=== PATIENT | male | born 1980 | race Caucasian/White ===

== ENCOUNTER 2018-02-22 11:01 | Emergency (ER) | payer MEDICAID ==
[2018-02-22] MEDS ORDERED: Sodium Chloride 0.9% 10 ML Syringe FLUSH PRN (11:39)
[2018-02-22 11:49] LABS: ANION GAP 10.1; CHLORIDE,CL 105 mmol/L (101-111); SODIUM,NA 138 mmol/L (135-145)
--- NOTE | 2018-02-22 11:51 | EDM.PDOC ---
ED HPI GENERAL MEDICAL PROBLEM - General Stated Complaint: CHEST PAINS Time Seen by Provider: 02/22/18 11:51 Source of Information: Reports: Patient History Limitations: Reports: No Limitations - History of Present Illness INITIAL COMMENTS - FREE TEXT/NARRATIVE: This 38 yo male patient reports to the ED with chest pain that started last night, but got much worse today. The patient reports that he has a history of blood clots and hypertension, but stopped taking his blood thinner and ran out of blood pressure medications. The patient reports that his symptoms had subsided prior to arrival in the ED. The patient reports he is currently in the [facility] due to violating his probation. The patient does not have a provider in [place]. Onset Date: 02/21/18 Duration: Constant, Resolved Prior to Arrival Location: Reports: Chest Quality: Reports: Ache, Sharp Severity: Severe Improves with: Reports: None Worsens with: Reports: None Associated Symptoms: Reports: Chest Pain Chest Pain Score (Numeric/FACES): 7 - Related Data Allergies Allergy/AdvReac Type Severity Reaction Status Date / Time No Known Allergies Allergy Verified 09/25/14 20:27 Home Meds: Home Meds Amitriptyline HCl 50 mg PO ASDIRECTED 02/22/18 [History] Benazepril HCl [Lotensin] 40 mg PO ASDIRECTED 02/22/18 [History] Hydrochlorothiazide 25 mg PO ASDIRECTED 02/22/18 [History] NIFEdipine [Nifedipine ER] 30 mg PO ASDIRECTED 02/22/18 [History] Past Medical History Cardiovascular History: Reports: Blood Clots/VTE/DVT, Hypertension Other Genitourinary History: with increased pain pt has more trouble voiding - Past Surgical History Other HEENT Surgeries/Procedures: eye surgery Social & Family History - Family History Family Medical History: Unobtainable - Tobacco Use Smoking Status *Q: Current Every Day Smoker Years of Tobacco use: 20 Packs/Tins Daily: 0.5 - Caffeine Use Caffeine Use: Reports: Coffee, Energy Drinks, Soda - Recreational Drug Use Recreational Drug Use: No ED ROS GENERAL - Review of Systems Review Of Systems: ROS reveals no pertinent complaints other than HPI. ED EXAM, GENERAL - Physical Exam Exam: See Below Exam Limited By: No Limitations General Appearance: Alert, WD/WN, Moderate Distress, Obese Eye Exam: Bilateral Eye: EOMI, Normal Inspection, PERRL Ears: Normal External Exam, Normal Canal, Hearing Grossly Normal, Normal TMs Nose: Normal Inspection, Normal Mucosa, No Blood Throat/Mouth: Normal Inspection, Normal Lips, Normal Teeth, Normal Gums, Normal Oropharynx, Normal Voice, No Airway Compromise Head: Atraumatic, Normocephalic Neck: Normal Inspection, Supple, Non-Tender, Full Range of Motion Respiratory/Chest: No Respiratory Distress, Lungs Clear, Normal Breath Sounds, No Accessory Muscle Use, Chest Non-Tender Cardiovascular: Normal Peripheral Pulses, Regular Rate, Rhythm, No Edema, No Gallop, No JVD, No Murmur, No Rub GI/Abdominal: Normal Bowel Sounds, Soft, Non-Tender, No Organomegaly, No Distention, No Abnormal Bruit, No Mass (Male) Exam: Deferred Rectal (Males) Exam: Deferred Back Exam: Normal Inspection, Full Range of Motion, NT Extremities: Normal Inspection, Normal Range of Motion, Non-Tender, Normal Capillary Refill, No Pedal Edema Neurological: Alert, Oriented, CN II-XII Intact, Normal Cognition, Normal Gait, Normal Reflexes, No Motor/Sensory Deficits Psychiatric: Normal Affect, Normal Mood Skin Exam: Warm, Dry, Intact, Normal Color, No Rash Lymphatic: No Adenopathy EKG INTERPRETATION EKG Date: 02/22/18 Time: 11:21 Rhythm: NSR [place]: Normal P-Wave: Present QRS: Normal ST-T: Normal QT: Normal Comparison: NA - No Prior EKG Course - Vital Signs Last Recorded V/S: Last Vital Signs Temp Pulse 103 H 02/22/18 11:25 Resp 16 02/22/18 11:25 BP 151/91 H 02/22/18 12:42 Pulse Ox 99 02/22/18 11:25 - Orders/Labs/Meds Orders: Active Orders 24 hr Category Date Time Status EKG Documentation Completion [RC] URGENT Care 02/22/18 11:10 Active Peripheral IV Care [RC] . DIRECTED Care 02/22/18 11:39 Active Chest 1V Frontal [CR] Urgent Exams 02/22/18 11:10 Taken Sodium Chloride 0.9% [Saline Flush] Med 02/22/18 11:39 Active 10 ml FLUSH ASDIRECTED PRN Peripheral IV Insertion Adult [OM.PC] Routine Oth 02/22/18 11:39 Ordered Medication Orders Sodium Chloride (Saline Flush) 10 ml FLUSH ASDIRECTED PRN PRN Reason: Keep Vein Open Last Admin: 02/22/18 12:44 Dose: 10 ml Labs: Laboratory Tests 02/22/18 02/22/18 02/22/18 Range/Units 11:20 11:20 11:20 WBC 9.2 (5.0-10.0) 10^3/uL RBC 4.24 L (4.6-6.2) 10^6/uL Hgb 13.1 L D (14.0-18.0) g/dL Hct 38.4 L (40.0-54.0) % MCV 90.6 (80-100) fL MCH 30.9 (27.0-34.0) pg MCHC 34.1 (33.0-35.0) g/dL Plt Count 231 D (150-450) 10^3/uL Neut % (Auto) 50.2 (42.2-75.2) % Lymph % (Auto) 32.7 (20.5-50.1) % [place] % (Auto) 13.0 H (2-8) % Eos % (Auto) 3.8 H (1.0-3.0) % Baso % (Auto) 0.3 (0.0-1.0) % PT 9.0 (9.0-12.0) SEC INR 0.9 (0.9-1.2) D-Dimer, Quantitative (0-400) ng/mL Sodium 138 (135-145) mmol/L Potassium 4.1 (3.6-5.0) mmol/L Chloride 105 (101-111) mmol/L Carbon Dioxide 27.0 (21.0-31.0) mmol/L Anion Gap 10.1 BUN 12 (7-18) mg/dL Creatinine 0.8 (0.6-1.3) mg/dL Est Cr Clr Drug Dosing TNP Estimated GFR (MDRD) > 60 BUN/Creatinine Ratio 15.00 Glucose 83 (74-105) mg/dL Calcium 8.7 (8.4-10.2) mg/dl Total Bilirubin 0.5 (0.2-1.0) mg/dL AST 27 (10-42) IU/L ALT 32 (10-60) IU/L Alkaline Phosphatase 80 (42-121) IU/L Troponin I < 0.02 (0.00-0.02) ng/ml Total Protein 7.5 (6.7-8.2) g/dl Albumin 4.0 (3.2-5.5) g/dl Globulin 3.5 Albumin/Globulin Ratio 1.14 / Range/Units 11:20 WBC (5.0-10.0) 10^3/uL RBC (4.6-6.2) 10^6/uL Hgb (14.0-18.0) g/dL Hct (40.0-54.0) % MCV (80-100) fL MCH (27.0-34.0) pg MCHC (33.0-35.0) g/dL Plt Count (150-450) 10^3/uL Neut % (Auto) (42.2-75.2) % Lymph % (Auto) (20.5-50.1) % [place] % (Auto) (2-8) % Eos % (Auto) (1.0-3.0) % Baso % (Auto) (0.0-1.0) % PT (9.0-12.0) SEC INR (0.9-1.2) D-Dimer, Quantitative 464 H (0-400) ng/mL Sodium (135-145) mmol/L Potassium (3.6-5.0) mmol/L Chloride (101-111) mmol/L Carbon Dioxide (21.0-31.0) mmol/L Anion Gap BUN (7-18) mg/dL Creatinine (0.6-1.3) mg/dL Est Cr Clr Drug Dosing Estimated GFR (MDRD) BUN/Creatinine Ratio Glucose (74-105) mg/dL Calcium (8.4-10.2) mg/dl Total Bilirubin (0.2-1.0) mg/dL AST (10-42) IU/L ALT (10-60) IU/L Alkaline Phosphatase (42-121) IU/L Troponin I (0.00-0.02) ng/ml Total Protein (6.7-8.2) g/dl Albumin (3.2-5.5) g/dl Globulin Albumin/Globulin Ratio Meds: Medications Generic Name Dose Route Start Last Admin Trade Name Freq PRN Reason Stop Dose Admin Sodium Chloride 10 ml 02/22/18 11:39 02/22/18 12:44 Saline Flush FLUSH 10 ml ASDIRECTED PRN Administration Keep Vein Open Discontinued Medications Generic Name Dose Route Start Last Admin Trade Name Fabricio PRN Reason Stop Dose Admin Iopamidol 100 ml 02/22/18 12:01 [id number] (76%) IVPUSH 02/22/18 12:02 ONETIME ONE Nifedipine 30 mg 02/22/18 12:04 02/22/18 12:42 Procardia Xl PO 02/22/18 12:05 30 mg ONETIME ONE Administration Departure - Departure Time of Disposition: 13:15 Disposition: Home, Self-Care 01 Condition: Fair Clinical Impression: Nonspecific chest pain Hypertension Qualifiers: Hypertension type: unspecified Qualified Code(s): I10 - Essential (primary) hypertension Instructions: Nonspecific Chest Pain, [id number], Hypertension, [id number] Forms: ED Department Discharge Care Plan Goals: The patient was advised of the examination, lab, EKG, chest x-ray and chest CT results during the visit. The patient was given a dose of Nifedipine while in the ED to reduce his blood pressure. The patient was discharged with a script for Nifedipine ER (30 mg) #14 to take 1 by mouth daily and Benazepril (40 mg) # 14 to take 1 by mouth daily for his hypertension. The patient should establish an appointment with a primary care provider for continued evaluation and further treatment. If the patient has any additional symptoms or concerns, the patient should either visit a primary care facility or return to the emergency department. - My Orders Last 24 Hours: My Active Orders 02/22/18 11:10 EKG Documentation Completion [RC] URGENT Chest 1V Frontal [CR] Urgent 02/22/18 11:39 Peripheral IV Care [RC] . DIRECTED Sodium Chloride 0.9% [Saline Flush] 10 ml FLUSH ASDIRECTED PRN Peripheral IV Insertion Adult [OM.PC] Routine - Assessment/Plan Last 24 Hours: My Active Orders 02/22/18 11:10 EKG Documentation Completion [RC] URGENT Chest 1V Frontal [CR] Urgent 02/22/18 11:39 Peripheral IV Care [RC] . DIRECTED Sodium Chloride 0.9% [Saline Flush] 10 ml FLUSH ASDIRECTED PRN Peripheral IV Insertion Adult [OM.PC] Routine
[2018-02-22] MEDS ORDERED: Iopamidol 755 Mg/ML 100 ML Bottle IVPUSH ONE (12:01)
[2018-02-22] MEDS ORDERED: NIFEdipine 30 MG Tab.ER PO ONE (12:04)
[2018-02-22 12:45] VITALS: BP 151/91
--- NOTE | 2018-02-26 11:56 | EKG ---
02/22/2018 - FRANCISCO JO - TIME: 11:21 a.m. FINDINGS: Sinus tachycardia at 104 with incomplete right bundle-branch block. [facility] /[id number]
== END 2018-02-22 13:30 | disposition home or self-care (01) ==
LOC: DL.ED 11:01
DX: R07.9 Chest pain, unspecified (principal); I10 Essential (primary) hypertension; F17.210 Nicotine dependence, cigarettes, uncomplicated
CPT/HCPCS: 36415; 71045; 71260; 80053; 84484; 85025; 85379; 85610; 93005; 99285; A9270; J7050; Q9967

== ENCOUNTER 2020-06-10 15:15 | Emergency (ER) | payer SELFPAY ==
[2020-06-10] MEDS ORDERED: Sodium Chloride 0.9% 10 ML Syringe FLUSH PRN (15:23)
[2020-06-10 15:58] LABS: ANION GAP 14.3 mEq/L (7-13); CHLORIDE,CL 100 mmol/L (98-107); SODIUM,NA 137 mmol/L (136-145)
[2020-06-10 16:03] VITALS: BP 142/68; PULSE 88
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
[2020-06-10] MEDS ORDERED: traMADol 50 MG Tab PO ONE (16:14)
[2020-06-10] MEDS ORDERED: Ondansetron 4 MG Tab.DIS PO ONE (16:18)
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
== END 2020-06-10 16:50 ==
LOC: DL.ED 15:15
DX: S06.0X0A Concussion without loss of consciousness, initial encounter (principal); S02.2XXA Fracture of nasal bones, initial encounter for closed fracture; I10 Essential (primary) hypertension; Z88.6 Allergy status to analgesic agent; Z88.5 Allergy status to narcotic agent; Z79.899 Other long term (current) drug therapy; Y04.0XXA Assault by unarmed brawl or fight, initial encounter; Y92.149 Unspecified place in prison as the place of occurrence of the external cause
CPT/HCPCS: 36415; 70450; 70486; 71250; 72125; 80053; 83735; 84100; 85025; 99284-25; A9270-GY

== ENCOUNTER 2020-07-05 11:56 | Emergency (ER) | payer SELFPAY ==
[2020-07-05 12:11] VITALS: BP 184/86; PULSE 98
--- NOTE | 2020-07-05 12:30 | EDM.PDOC ---
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 The patient reports he was wearing tennis shoes while at work. The patient reports his current pain is a 10/10 to the right great toe. The patient has had his 2nd toe amputated due to frostbite previously. Onset: Today Duration: Constant Location: Reports: Lower Extremity, Right Quality: Reports: Ache, Sharp, Stabbing Severity: Severe Improves with: Reports: None Worsens with: Reports: None Context: Reports: Activity Associated Symptoms: Reports: No Other Symptoms - Related Data Allergies Allergy/AdvReac Type Severity Reaction Status Date / Time acetaminophen [From Tylenol] AdvReac Mild too many Verified 07/05/20 12:06 causes vomiting tramadol AdvReac Mild too many Verified 07/05/20 12:06 causes vomiting Home Meds: Home Meds lisinopriL [Lisinopril] 10 mg PO DAILY 07/05/20 [History] Past Medical History - Past Health History Medical/Surgical History: Denies Medical/Surgical History Cardiovascular History: Reports: Blood Clots/VTE/DVT, Hypertension Respiratory History: Reports: None Gastrointestinal History: Reports: None Genitourinary History: Reports: Other (See Below) Other Genitourinary History: with increased pain pt has more trouble voiding Musculoskeletal History: Reports: None Neurological History: Reports: None Psychiatric History: Reports: Addiction Endocrine/Metabolic History: Reports: None Hematologic History: Reports: None Immunologic History: Reports: None Oncologic (Cancer) History: Reports: None Dermatologic History: Reports: None - Infectious Disease History Infectious Disease History: Reports: None - Past Surgical History Head Surgeries/Procedures: Reports: None HEENT Surgical History: Reports: Other (See Below) Other HEENT Surgeries/Procedures: eye surgery Musculoskeletal Surgical History: Reports: Other (See Below) Other Musculoskeletal Surgeries/Procedures:: right 2nd toe amp r/t merchant bite Oncologic Surgical History: Reports: Biopsy of Breast Social & Family History - Family History Family Medical History: No Pertinent Family History - Tobacco Use Tobacco Use Status *Q: Current Every Day Tobacco User Years of Tobacco use: 22 Packs/Tins Daily: 0.5 - Caffeine Use Caffeine Use: Reports: Coffee Caffeine Use Comment: had x1 today - Recreational Drug Use Recreational Drug Use: No ED ROS GENERAL - Review of Systems Review Of Systems: Comprehensive ROS is negative, except as noted in HPI. ED EXAM, GENERAL - Physical Exam Exam: See Below Exam Limited By: No Limitations General Appearance: Alert, WD/WN, Moderate Distress Eye Exam: Bilateral Eye: EOMI, Normal Inspection, PERRL Ears: Normal External Exam, Normal Canal, Hearing Grossly Normal, Normal TMs Nose: Normal Inspection, Normal Mucosa, No Blood Throat/Mouth: Normal Inspection, Normal Lips, Normal Teeth, Normal Gums, Normal Oropharynx, Normal Voice, No Airway Compromise Head: Atraumatic, Normocephalic Neck: Normal Inspection, Supple, Non-Tender, Full Range of Motion Respiratory/Chest: No Respiratory Distress, Lungs Clear, Normal Breath Sounds, No Accessory Muscle Use, Chest Non-Tender Cardiovascular: Normal Peripheral Pulses, Regular Rate, Rhythm, No Edema, No Gallop, No JVD, No Murmur, No Rub GI/Abdominal: Normal Bowel Sounds, Soft, Non-Tender, No Organomegaly, No Distention, No Abnormal Bruit, No Mass (Male) Exam: Deferred Rectal (Males) Exam: Deferred Back Exam: Normal Inspection, Full Range of Motion, NT Extremities: Leg Pain (right foot pain with swelling of his right great toe and discoloration of his right great toe, right distal 3rd toe and right distal 4th toe) Neurological: Alert, Oriented, CN II-XII Intact, Normal Cognition, Normal Reflexes, No Motor/Sensory Deficits Psychiatric: Normal Affect, Normal Mood Lymphatic: No Adenopathy Course - Vital Signs Last Recorded V/S: Last Vital Signs Temp 36.9 C 07/05/20 12:08 Pulse 98 07/05/20 12:08 Resp 18 07/05/20 12:08 BP 184/86 H 07/05/20 12:08 Pulse Ox 100 07/05/20 12:08 - Orders/Labs/Meds Labs: Laboratory Tests 07/05/20 07/05/20 07/05/20 Range/Units 12:42 12:42 13:17 WBC 12.2 H (5.0-10.0) 10^3/uL RBC 3.90 L (4.6-6.2) 10^6/uL Hgb 12.4 L D (14.0-18.0) g/dL Hct 35.9 L (40.0-54.0) % MCV 92.1 D (80-100) fL MCH 31.8 (27.0-34.0) pg MCHC 34.5 (33.0-35.0) g/dL Plt Count 223 (150-450) 10^3/uL Neut % (Auto) 66.9 (42.2-75.2) % Lymph % (Auto) 21.5 (20.5-50.1) % Alfalfa % (Auto) 9.5 H (2-8) % Eos % (Auto) 1.5 (1.0-3.0) % Baso % (Auto) 0.6 (0.0-1.0) % Sodium 137 (136-145) mmol/L Potassium 4.2 (3.5-5.1) mmol/L Chloride 100 (98-107) mmol/L Carbon Dioxide 29 (21-32) mmol/L Anion Gap 12.2 (7-13) mEq/L BUN 13 (7-18) mg/dL Creatinine 0.77 (0.70-1.30) mg/dL Est Cr Clr Drug Dosing 144.12 mL/min Estimated GFR (MDRD) > 60 BUN/Creatinine Ratio 16.9 (No establ ref range) Glucose 82 (74-99) mg/dL Calcium 8.8 (8.5-10.1) mg/dL Total Bilirubin 0.4 (0.2-1.0) mg/dL AST 24 (15-37) U/L ALT 34 (16-63) U/L Alkaline Phosphatase 89 (46-116) U/L C-Reactive Protein 3.1 H (0.0-0.9) mg/dL Total Protein 7.5 (6.4-8.2) g/dL Albumin 3.7 (3.4-5.0) g/dL Globulin 3.8 Albumin/Globulin Ratio 1.0 SARS CoV-2 RNA Rapid CHARY Negative (NEGATIVE) Departure - Departure Time of Disposition: 13:58 Disposition: Home, Self-Care 01 Condition: Fair Clinical Impression: Frostbite of right great toe Qualifiers: Encounter type: initial encounter Qualified Code(s): T33.831A - Superficial frostbite of right toe(s), initial encounter - Discharge Information *PRESCRIPTION DRUG MONITORING PROGRAM REVIEWED*: Not Applicable *COPY OF PRESCRIPTION DRUG MONITORING REPORT IN PATIENT KIMANI: Not Applicable Forms: ED Department Discharge Care Plan Goals: The patient was advised of the examination, lab and x-ray results during the visit. During the stay, a consultation has been done with Dr. Diamond (Orthopedics in [facility]). The patient was discharged with a script for Toradol (10 mg) #20 to take 1 by mouth every 6 hours as needed for pain. The patient should call [facility] in [place] to establish an appointment to see a cashier checker at the next available appointment. If the patient has any additional symptoms or concerns, the patient should either return to the emergency department or visit his primary care facility. Sepsis Event Note (ED) - Evaluation Sepsis Screening Result: No Definite Risk - Focused Exam Vital Signs: Vital Signs Temp Pulse Resp BP Pulse Ox 07/05/20 12:08 36.9 C 98 18 184/86 H 100
[2020-07-05 13:12] LABS: ANION GAP 12.2 mEq/L (7-13); CHLORIDE,CL 100 mmol/L (98-107); SODIUM,NA 137 mmol/L (136-145)
--- NOTE | 2020-07-05 13:39 | CR ---
EXAMINATION: Toes Multiple Rt SEX: Male AGE: 40 years CLINICAL HISTORY: 40-year-old male with clinical FROSTBITE right foot. No comparison films. Interpretation: (3 views right forefoot) Previous amputation second toe. Apparent attenuation of the terminal zoila, distal phalanges of the great, third and fifth toes. Age? Soft tissue swelling of the digits. Metatarsals intact. No foreign bodies, inflammatory periostitis, right forefoot fracture or dislocation.
== END 2020-07-05 14:10 | disposition home or self-care (01) ==
LOC: DL.ED 11:56
DX: T33.831A Superficial frostbite of right toe(s), initial encounter (principal); I10 Essential (primary) hypertension; F17.210 Nicotine dependence, cigarettes, uncomplicated; Z20.828 Contact with and (suspected) exposure to other viral communicable diseases; Z88.6 Allergy status to analgesic agent; Z88.5 Allergy status to narcotic agent; Z79.899 Other long term (current) drug therapy
CPT/HCPCS: 36415; 73660-RT; 80053; 85025; 86140; 99283; U0002

== ENCOUNTER 2020-10-22 09:56 | Emergency (ER) | payer SELFPAY ==
--- NOTE | 2020-10-22 10:04 | EDM.PDOC ---
ED HPI GENERAL MEDICAL PROBLEM - General Chief Complaint: Lower Extremity Injury/Pain Stated Complaint: INFECTED RIGHT FOOT/FROTBITE Time Seen by Provider: 10/22/20 10:02 Source of Information: Reports: Patient, Old Records, RN, RN Notes Reviewed History Limitations: Reports: No Limitations - History of Present Illness INITIAL COMMENTS - FREE TEXT/NARRATIVE: Pt presents to ER by POV with c/o right foot merchant bite with infection. Pt got frostbite to right great toe July 02, 2020. Now pt believes the right 1st toe is infected. A month or so after the frostbite the skin on the right medial 1st toe opened and has remained open. Occasionally there has been some clear to kina drainage. He denies purulent drainage, or fevers. There is currently a small amount of drainage to the ulceration on the toe which measures about 2cm x 0.5 cm. No signs of redness going down toe or up foot. He also has c/o recurrent "pus blisters" to the tips of toes 2-4 on the left foot. Duration: Chronic, Constant Location: Reports: Lower Extremity, Left, Lower Extremity, Right Quality: Reports: Ache Severity: Mild Improves with: Reports: None Worsens with: Reports: Other (Wt. bearing, walking, and friction of toes in shoes/boots.) Right Toe-Hailux Pain Score (Numeric/FACES): 6 - Related Data Allergies Allergy/AdvReac Type Severity Reaction Status Date / Time acetaminophen [From Tylenol] AdvReac Mild too many Verified 10/22/20 10:19 causes vomiting tramadol AdvReac Mild too many Verified 10/22/20 10:19 causes vomiting Home Meds: Home Meds lisinopriL [Lisinopril] 10 mg PO DAILY 07/05/20 [History] Past Medical History - Past Health History Medical/Surgical History: Denies Medical/Surgical History Cardiovascular History: Reports: Blood Clots/VTE/DVT, Hypertension Respiratory History: Reports: None Gastrointestinal History: Reports: None Genitourinary History: Reports: Other (See Below) Other Genitourinary History: with increased pain pt has more trouble voiding Musculoskeletal History: Reports: None Neurological History: Reports: None Psychiatric History: Reports: Addiction Endocrine/Metabolic History: Reports: None Hematologic History: Reports: None Immunologic History: Reports: None Oncologic (Cancer) History: Reports: None Dermatologic History: Reports: None - Infectious Disease History Infectious Disease History: Reports: None - Past Surgical History Head Surgeries/Procedures: Reports: None HEENT Surgical History: Reports: Other (See Below) Other HEENT Surgeries/Procedures: eye surgery Musculoskeletal Surgical History: Reports: Other (See Below) Other Musculoskeletal Surgeries/Procedures:: right 2nd toe amp r/t merchant bite Oncologic Surgical History: Reports: Biopsy of Breast Social & Family History - Family History Family Medical History: No Pertinent Family History - Caffeine Use Caffeine Use: Reports: Coffee Caffeine Use Comment: had x1 today - Living Situation & Occupation Living situation: Reports: Single Review of Systems - Review of Systems Review Of Systems: Comprehensive ROS is negative, except as noted in HPI. ED EXAM, GENERAL - Physical Exam Exam: See Below Exam Limited By: No Limitations General Appearance: Alert, WD/WN, No Apparent Distress Throat/Mouth: Normal Voice, No Airway Compromise Head: Atraumatic, Normocephalic Respiratory/Chest: No Respiratory Distress Cardiovascular: Normal Peripheral Pulses Peripheral Pulses: 2+: Dorsalis Pedis (L), Dorsalis Pedis (R), 3+: Posterior Tibial (L), Posterior Tibial (R) Extremities: Normal Range of Motion, Normal Capillary Refill, Redness (Distal tips of left toes 2 - 4 have mild erythema around distal tip eschar, no swelling or drainage), Other (Rt 1st toe with a chronic appearing ulcer with granulation tissue and evidence of slowly healing margins. The ulcer is unstagable in the ER setting.). No: Joint Swelling, Increased Warmth Neurological: Alert, Oriented, No Motor/Sensory Deficits Psychiatric: Normal Mood Skin Exam: Warm, Dry Course - Vital Signs Last Recorded V/S: Last Vital Signs Temp 97 F 10/22/20 10:08 Pulse 95 10/22/20 10:08 Resp 16 10/22/20 10:08 BP 180/98 H 10/22/20 10:08 Pulse Ox 100 10/22/20 10:08 - Orders/Labs/Meds Orders: Active Orders 24 hr Category Date Time Status Wound Care [RC] ONETIME Care 10/22/20 10:18 Ordered Mupirocin Oint [Bactroban Oint] Med 10/22/20 10:20 Once 15 gm TOP ONETIME ONE cephALEXin [Keflex] Med 10/22/20 10:20 Once 500 mg PO ONETIME ONE Departure - Departure Time of Disposition: 10:29 Disposition: Home, Self-Care 01 Condition: Good Clinical Impression: Cellulitis of left toe Chronic ulcer of right great toe Qualifiers: Non-pressure ulcer stage: unspecified non-pressure ulcer stage Qualified Code(s): L97.519 - Non-pressure chronic ulcer of other part of right foot with unspecified severity - Discharge Information *PRESCRIPTION DRUG MONITORING PROGRAM REVIEWED*: Not Applicable *COPY OF PRESCRIPTION DRUG MONITORING REPORT IN PATIENT KIMANI: Not Applicable Instructions: How to Change Your Wound Dressing, [id number] Forms: ED Department Discharge Additional Instructions: Rx: Lisinopril 10mg Rx: Cephalexin 500mg Rx: Bactroban Ointment 2% to left toe tips. Wet to Dry dressing changes to right big toe ulcer twice a day until healed. Follow up in clinic as soon as possible. Sepsis Event Note (ED) - Focused Exam Vital Signs: Vital Signs Temp Pulse Resp BP Pulse Ox 10/22/20 10:08 97 F 95 16 180/98 H 100 - My Orders Last 24 Hours: My Active Orders 10/22/20 10:18 Wound Care [RC] ONETIME 10/22/20 10:20 Mupirocin Oint [Bactroban Oint] 15 gm TOP ONETIME ONE cephALEXin [Keflex] 500 mg PO ONETIME ONE - Assessment/Plan Last 24 Hours: My Active Orders 10/22/20 10:18 Wound Care [RC] ONETIME 10/22/20 10:20 Mupirocin Oint [Bactroban Oint] 15 gm TOP ONETIME ONE cephALEXin [Keflex] 500 mg PO ONETIME ONE
[2020-10-22 10:09] VITALS: BP 180/98; PULSE 95
[2020-10-22] MEDS ORDERED: Mupirocin Oint 22 GM Tube TOP ONE (10:20)
[2020-10-22] MEDS ORDERED: Cephalexin 500 MG Cap PO ONE (10:20)
== END 2020-10-22 10:47 | disposition home or self-care (01) ==
LOC: DL.ED 09:56
DX: L97.519 Non-pressure chronic ulcer of other part of right foot with unspecified severity (principal); L03.032 Cellulitis of left toe; Z88.6 Allergy status to analgesic agent; Z88.5 Allergy status to narcotic agent
CPT/HCPCS: 99283; A9270-GY